=== PATIENT | female | born 1985 | race Caucasian/White ===

== ENCOUNTER 2022-05-01 09:17 | Emergency (ER) | payer BC ==
[~2022-05-01] VITALS: Ht 165.1 cm; Wt 95.3 kg
[2022-05-01] MEDS ORDERED: KETOROLAC TROMETHAMINE 30 MG/ML VIAL IV ONE (09:24)
[2022-05-01] MEDS ORDERED: LEVOFLOXACIN 750MG/D5W 150ML 150 ML IV ONE (09:36)
[2022-05-01] MEDS ORDERED: METRONIDAZOLE 500MG/NS 100ML 100 ML IV ONE (09:36)
[2022-05-01 09:51] LABS: BASOPHILS # (AUTO) 0.1 (0.0-0.1); BASOPHILS % 0.6 % (0.0-1.0); EOSINOPHILS # (AUTO) 0.8 (0.0-0.4); EOSINOPHILS % 7.6 % (0.0-6.0); HEMATOCRIT 43.6 % (34.2-44.1); LYMPHOCYTES # (AUTO) 2.1 (1.0-3.2); LYMPHOCYTES % 19.3 % (18.0-39.1); MEAN CORPUSCULAR HEMOGLOBIN 27.9 pg (28-32); MEAN CORPUSCULAR HGB CONC 32.1 g/dL (31-35); MONOCYTES # (AUTO) 0.5 (0.2-0.8); MONOCYTES % 4.5 % (4.4-11.3); NEUTROPHILS # (AUTO) 7.4 (2.1-6.9); NEUTROPHILS % 67.6 % (38.7-80.0); PLATELET COUNT 341 x10e3/uL (140-360); RED BLOOD COUNT 5.01 x10e6/uL (3.6-5.1); RED CELL DISTRIBUTION WIDTH 13.2 % (11.7-14.4)
[2022-05-01] MEDS ORDERED: HYDROCODONE/APAP 5MG-325MG TAB PO ONE (10:00)
[2022-05-01 10:14] LABS: ALBUMIN 4.1 g/dL (3.5-5.0); ALBUMIN/GLOBULIN RATIO 1.4 (0.8-2.0); ANION GAP 14.8 mmol/L (8-16); CALCIUM 8.9 mg/dL (8.4-10.2); CREATININE, SERUM 0.72 mg/dL (0.57-1.11); POTASSIUM 3.8 mmol/L (3.5-5.1)
[2022-05-01] MEDS ORDERED: IOPAMIDOL 370 MG/ML 100 ML INFUS..BTL INJ ONE (10:38)
[2022-05-01] MEDS ORDERED: METRONIDAZOLE500 MG PO (12:24)
[2022-05-01] MEDS ORDERED: ULTRAM 50MG50 MG PO (12:25)
[2022-05-01 12:41] VITALS: BP 131/82
== END 2022-05-01 12:44 | disposition home or self-care (01) ==
LOC: ER 09:22
DX: K08.89 Other specified disorders of teeth and supporting structures (principal); K04.7 Periapical abscess without sinus
CPT/HCPCS: 36415; 70487; 80053; 85025; 99284; Q9967

== ENCOUNTER 2022-05-01 19:17 | Emergency (ER) | payer BC ==
[~2022-05-01] VITALS: Ht 165.1 cm; Wt 95.3 kg
[~2022-05-01 19:17] MED LIST: METRONIDAZOLE500 MG PO; ULTRAM 50MG50 MG PO
== END 2022-05-01 20:37 | disposition home or self-care (01) ==
LOC: ER 19:33
DX: R50.9 Fever, unspecified (principal); K04.7 Periapical abscess without sinus; K08.89 Other specified disorders of teeth and supporting structures
CPT/HCPCS: 99282